=== PATIENT | male | born 1990 | race Caucasian/White ===

== ENCOUNTER 2021-10-02 11:55 | Outpatient (CLI) | payer BC, SELFPAY ==
[2021-10-05 13:51] LABS: PCP NEGATIVE ng/mL (<25)
[2021-10-24 13:28] LABS: Amphetamines NEGATIVE; Marijuana Metabolites NEGATIVE
[2021-10-24 13:29] LABS: Barbiturates NEGATIVE; Benzodiazepines NEGATIVE; Cocaine Metabolites NEGATIVE
== END 2021-10-02 11:56 | disposition home or self-care (01) ==
LOC: ANHGOSHLAB 11:56
PROVIDERS: PCP Internal Medicine; Visit Provider Clinical Nurse Specialist
DX: F90.9 Attention-deficit hyperactivity disorder, unspecified type (principal)
CPT/HCPCS: 80307